=== PATIENT | female | born 1965 | race Caucasian/White ===

== ENCOUNTER → 2019-10-14 | Emergency (ER) | payer OTHER ==
[~2019-10-14] VITALS: Ht 162.6 cm; Wt 53.5 kg
[~2019-10-14] MED LIST: ZOLOFT25 MG
== END | disposition home or self-care (01) ==
LOC: ER 14:04
DX: M94.0 Chondrocostal junction syndrome [Tietze] (principal); R07.89 Other chest pain

== ENCOUNTER 2019-11-02 17:23 | Outpatient (CLI) | payer OTHER | END 2019-11-02 17:29 | disposition home or self-care (01) | LOC: RAD 17:23 | DX: M54.5 Low back pain (principal) ==

== ENCOUNTER 2019-11-27 23:15 | Emergency (ER) | payer OTHER ==
[~2019-11-27] VITALS: Ht 160 cm; Wt 54.0 kg
== END 2019-11-28 01:58 | disposition home or self-care (01) ==
LOC: ER 23:15
DX: H00.14 Chalazion left upper eyelid (principal)

== ENCOUNTER 2020-03-31 17:34 | Emergency (ER) | payer OTHER ==
[~2020-03-31] VITALS: Ht 162.6 cm; Wt 53.5 kg
[2020-03-31] MEDS ORDERED: BACLOFEN10 MG (18:07)
[2020-03-31] MEDS ORDERED: RAYOS1 MG (18:07)
[2020-03-31] MEDS ORDERED: SULINDAC200 MG (18:07)
== END 2020-03-31 22:56 | disposition home or self-care (01) ==
LOC: ER 17:34
DX: S91.342A Puncture wound with foreign body, left foot, initial encounter (principal); S91.341A Puncture wound with foreign body, right foot, initial encounter; T63.691A Toxic effect of contact with other venomous marine animals, accidental (unintentional), initial encounter; M79.672 Pain in left foot; M79.671 Pain in right foot; Y92.832 Beach as the place of occurrence of the external cause; Y93.01 Activity, walking, marching and hiking; Y99.8 Other external cause status

== ENCOUNTER 2020-04-03 17:51 | Emergency (ER) | payer OTHER ==
[~2020-04-03] VITALS: Ht 162.6 cm; Wt 53.5 kg
[~2020-04-03 17:51] MED LIST changes: +BACLOFEN10 MG; +RAYOS1 MG; +SULINDAC200 MG
== END 2020-04-03 20:57 | disposition home or self-care (01) ==
LOC: ER 17:51
DX: S90.812A Abrasion, left foot, initial encounter (principal); S90.811A Abrasion, right foot, initial encounter; W26.2XXA Contact with edge of stiff paper, initial encounter; Y93.89 Activity, other specified; Y92.89 Other specified places as the place of occurrence of the external cause; Y99.8 Other external cause status

== ENCOUNTER 2025-09-01 16:08 | Emergency (ER) | payer OTHER ==
[~2025-09-01] VITALS: Ht 162.6 cm; Wt 59.0 kg
[2025-09-01] MEDS ORDERED: KETOROLAC TROMETHAMINE 30 MG VIAL IM STA (18:00)
[2025-09-01] MEDS ORDERED: ORPHENADRINE CITRATE 30 MG/ML AMPUL IM STA (18:01)
[2025-09-01] MEDS ORDERED: KETOROLAC TROMETHAMINE 30 MG VIAL ONE (18:10)
[2025-09-01] MEDS ORDERED: ORPHENADRINE CITRATE 30 MG/ML AMPUL ONE (18:10)
[2025-09-01 18:29] LABS: BASO % 0.1 % (0.1-1.2); EOS # 0.00 (0.04-0.54); EOS % 0.0 % (0.7-7.0); LYMPH # 0.84 (1.18-3.74); LYMPH % 8.5 % (19.3-53.1); MEAN PLATELET VOLUME 11.10 fl (9.4-12.4); MONO # 0.73 (0.24-0.82); MONO % 7.4 % (4.7-12.5); NEUT # 8.22 (1.56-6.13); NEUT % 83.6 % (34.0-71.1); RED CELL DISTRIBUTION WIDTH 12.8 % (11.6-14.4)
[2025-09-01 18:53] LABS: INR 0.98
[2025-09-01 18:56] LABS: ALT/SGPT 37.0 U/L (12-78); AST/SGOT 17.0 U/L (15-37); BILIRUBIN TOTAL 0.84 mg/dL (0.3-1.2); BUN CREA RATIO 25.0 (7.0-25.0); CREATININE SERUM 0.75 mg/dL (0.55-1.02); GFR 78.56; GLOBULINA 4.0 G/DL (2.4-3.5); GLUCOSE FASTING 151.0 mg/dL (65-100); OSMOLALITY SERUM 285.0 MOSM/KG (275-295)
[2025-09-01 18:59] LABS: D DIMER < 0.19 MG/L
== END 2025-09-01 19:49 | disposition home or self-care (01) ==
LOC: ER 16:08
PROVIDERS: General Practice
DX: M79.604 Pain in right leg (principal)